=== PATIENT | male | born 1950 | race Caucasian/White ===

== ENCOUNTER 2021-09-30 09:39 | Emergency (ER) | payer MEDICARE, OTHER ==
[2021-09-30] MEDS ORDERED: Lidocaine 1% with EPINEPHrine 1:100,000 50 ML MDV INJECT ONE (09:42)
[2021-09-30] MEDS ORDERED: Diphtheria,Pertussis(Acell),Tetanus Vaccine 0.5 ML Syringe IM ONE (09:42)
[2021-09-30 10:35] VITALS: BP 119/67; PULSE 65
== END 2021-09-30 11:10 | disposition home or self-care (01) ==
LOC: JP.ED 09:39
DX: S69.92XA Unspecified injury of left wrist, hand and finger(s), initial encounter (principal); Z23 Encounter for immunization; Z88.0 Allergy status to penicillin; W45.8XXA Other foreign body or object entering through skin, initial encounter
CPT/HCPCS: 99283

== ENCOUNTER 2024-08-19 15:25 | Emergency (ER) | payer MEDICARE, OTHER ==
[2024-08-19 15:56] VITALS: BP 113/70; PULSE 52
[2024-08-19] MEDS: Lidocaine/Epineph/Tetracaine 3 ML Syringe TOP ONE ×2 (16:50)
== END 2024-08-19 18:40 | disposition home or self-care (01) ==
LOC: JP.ED 15:25
DX: S81.811A Laceration without foreign body, right lower leg, initial encounter (principal); Z88.0 Allergy status to penicillin; W23.1XXA Caught, crushed, jammed, or pinched between stationary objects, initial encounter
CPT/HCPCS: 12001; 12004; 99282; 99283; A9270